=== PATIENT | female | born 1990 | race Two or more races ===

== ENCOUNTER 2016-12-19 17:17 | Emergency (ER) | payer MEDICAID ==
[~2016-12-19] VITALS: Ht 172.7 cm; Wt 81.6 kg
--- NOTE | 2016-12-19 17:30 | NUR ---
PT CAME IN FOR LEFT HIP PAIN FROM S/P FALL 3 DAYS AGO. PT ALSO REPORTS SYNCOPAL EPISODE YESTERDAY. DENIES KO. NAD NOTED. PT AAOX3. DENIES HEAD TRAUMA. MD AT FOR EVAL. VSS. SAFETY AND COMFORT MEASURES PROVIDED. WILL MONITOR.
[2016-12-19 17:51] LABS: BASOPHILS # (AUTO) 0.1 /CMM (0.0-0.2); BASOPHILS % (AUTO) 0.6 % (0.0-2.0); EOSINOPHILS # (AUTO) 0.1 /CMM (0.0-0.7); EOSINOPHILS % (AUTO) 1.1 % (0.0-6.0); HEMATOCRIT 41 % (33-45); HEMOGLOBIN 13.6 g/dL (11.5-14.8); LYMPHOCYTES # (AUTO) 2.7 /CMM (0.8-4.8); LYMPHOCYTES % (AUTO) 27.9 % (20.0-44.0); MEAN CORPUSCULAR HEMOGLOBIN 29 PG (26.0-33.0); MEAN CORPUSCULAR HGB CONC 33 g/dl (31.0-36.0); MEAN CORPUSCULAR VOLUME 86 fL (82-100); MONOCYTES # (AUTO) 0.7 /CMM (0.1-1.30); MONOCYTES % (AUTO) 7.7 % (2.0-12.0); NEUTROPHILS % (AUTO) 62.7 % (43.0-81.0); PLATELET COUNT (AUTO) 204 /CMM (150-450); RDW COEFFICIENT OF VARIATION 12.6 (11.5-15.0); RED BLOOD CELL COUNT(AUTO) 4.74 MIL/uL (4.0-5.2); WHITE BLOOD COUNT (AUTO) 9.6 K/uL (4.3-11.0)
[2016-12-19] MEDS ORDERED: IBUPROFEN 400 MG TABLET ONE (17:53)
[2016-12-19 18:00] LABS: CALCIUM, SERUM 8.7 mg/dL (8.5-10.1); CREATININE 0.7 mg/dL (0.6-1.3)
[2016-12-19] MEDS ORDERED: IBUPROFEN 400 MG TABLET PO ONE (18:00)
--- NOTE | 2016-12-19 18:00 | NUR ---
PT MEDICATED ORDERED.
--- NOTE | 2016-12-19 18:10 | NUR ---
PT TAKEN TO CT.
--- NOTE | 2016-12-19 18:29 | NUR ---
GLADYS MCCURDY AT BS.
--- NOTE | 2016-12-19 19:05 | NUR ---
Patient discharged to home in stable condition. Written and verbal after care instructions given. Patient verbalizes understanding of instruction.
[2016-12-19 19:06] VITALS: BP 128/77
== END 2016-12-19 19:07 | disposition home or self-care (01) ==
LOC: ER 17:20
DX: S70.02XA Contusion of left hip, initial encounter (principal); Z88.1 Allergy status to other antibiotic agents; R55 Syncope and collapse; W18.39XA Other fall on same level, initial encounter; Y93.89 Activity, other specified; Y92.89 Other specified places as the place of occurrence of the external cause; Y99.8 Other external cause status
CPT/HCPCS: 36415; 73510-TC; 80048-TC; 84703-TC; 85025-TC; 93971-TC; A4606; Z7610